=== PATIENT | male | born 2000 | race Caucasian/White ===

== ENCOUNTER 2024-09-17 14:34 | Emergency (ER) | payer OTHER, SELFPAY ==
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
[2024-09-17 14:50] VITALS: BP 135/90; PULSE 96; RESP 18; TEMP 37.1; O2SAT 100
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
== END 2024-09-17 15:42 | disposition home or self-care (01) ==
PROVIDERS: Emergency Provider Nurse Practitioner Family
DX: S16.1XXA Strain of muscle, fascia and tendon at neck level, initial encounter (principal); V49.40XA Driver injured in collision with unspecified motor vehicles in traffic accident, initial encounter
CPT/HCPCS: 72050; 99203; G0463